=== PATIENT | female | born 1955 | race Caucasian/White ===

== ENCOUNTER 2020-12-10 20:32 | Emergency (ER) | payer OTHER ==
[~2020-12-10] VITALS: Ht 157.5 cm; Wt 51.3 kg
== END 2020-12-10 21:26 | disposition home or self-care (01) ==
LOC: ER 20:32
DX: S00.33XA Contusion of nose, initial encounter (principal); S80.01XA Contusion of right knee, initial encounter; W18.39XA Other fall on same level, initial encounter; Y93.89 Activity, other specified; Y92.89 Other specified places as the place of occurrence of the external cause; Y99.8 Other external cause status

== ENCOUNTER 2021-03-24 07:54 | Emergency (ER) | payer OTHER ==
[~2021-03-24] VITALS: Ht 157.5 cm; Wt 51.7 kg
== END 2021-03-24 12:28 ==
LOC: ER 07:54
DX: R42 Dizziness and giddiness (principal)

== ENCOUNTER 2021-11-24 14:22 | Emergency (ER) | payer OTHER ==
[~2021-11-24] VITALS: Ht 157.5 cm; Wt 54.4 kg
== END 2021-11-24 22:15 | disposition home or self-care (01) ==
LOC: ER 14:22
DX: R11.10 Vomiting, unspecified (principal); T50.B95A Adverse effect of other viral vaccines, initial encounter; Z20.822 Contact with and (suspected) exposure to COVID-19